=== PATIENT | female | born 1990 | race Caucasian/White ===

== ENCOUNTER 2023-11-26 22:29 | Emergency (ER) | payer OTHER, SELFPAY ==
[2023-11-26 22:33] VITALS: BP 128/89; PULSE 84; TEMP 36.8; O2SAT 91; BMI 38.7
--- NOTE | 2023-11-26 23:41 | ED.MEDCLEAR1 ---
HPI - Medical Clearance General Chief complaint: Medical Clearance Stated complaint: Medical Clearance Time Seen by Provider: 11/26/23 22:43 Source: patient Mode of arrival: Wheelchair History of Present Illness HPI Narrative: This 33-year-old female was referred to the emergency department by [facility] after she presented for intake after drinking a large amount of ROM and her breath alcohol was greater than 0.2. According to them she has to be referred to the emergency department at that time. The patient states she drank less today than she typically does. She states that she has been in rehab before and was clean 124 days. She started drinking again last Friday after losing her job. She denies any chest pain or shortness of breath. She is not having any nausea or vomiting. She denies the possibility of . She is tearful but otherwise awake alert and oriented. She was seen recently for anxiety at another hospital. She denies any suicidal or homicidal ideation at this time and states she went to the detox facility to get help and is aggravated that they referred her to this emergency department. The patient does admit to heavy tobacco use and states that her lungs are F-d up Related Information Allergies Allergy/AdvReac Type Severity Reaction Status Date / Time doxepin AdvReac Intermediate Rash Verified 11/26/23 22:48 lavender (Lavandula AdvReac Intermediate Rash Verified 11/26/23 22:48 angustifolia) tramadol AdvReac Intermediate Rash Verified 11/26/23 22:48 Review of Systems ROS Status of ROS 10 or more systems reviewed and unremarkable except as noted in history and below Exam Narrative Exam Narrative: Vital signs and Nursing Notes reviewed: Patient is afebrile with a normal pulse, normal respiratory rate, she is mildly hypoxic with pulse ox of 91% on room air General: Intoxicated but cooperative overweight female, no respiratory distress HEENT: Normocephalic atraumatic, mucous membranes are moist and pink, eyes are clear, normal conjunctiva, vision is grossly intact Chest: Coarse breath sounds and expiratory wheezing, no rhonchi or rales appreciated, occasional moist cough noted, pulse ox was low upon arrival at 91% on room air CVS: Regular rate and rhythm S1-S2, no murmurs rubs or gallops, pulses are brisk and equal bilaterally ABD: Soft, nondistended, nontender, no rebound guarding or rigidity, bowel sounds are normal, no pulsatile masses appreciated Extremities: Moving all extremities, no lower extremity tenderness or swelling noted, negative Homans' sign, pulses are brisk and equal bilaterally Skin: Normal in appearance without rash,pallor, petechiae or purpura Neuro: No focal deficits, mildly intoxicated, ambulatory with a steady gait Constitutional Vital Signs, click to edit/add: Last Vital Signs Temp 98.2 F 11/26/23 22:33 Pulse 84 11/26/23 22:33 Resp 16 11/26/23 22:33 BP 128/89 11/26/23 22:33 Pulse Ox 91 L 11/26/23 22:33 O2 Del Method Room Air 11/26/23 22:33 Course Vital Signs Vital signs: Vital Signs Temperature 98.2 F 11/26/23 22:33 Pulse Rate 84 11/26/23 22:33 Respiratory Rate 16 11/26/23 22:33 Blood Pressure 128/89 11/26/23 22:33 Pulse Oximetry 91 L 11/26/23 22:33 Oxygen Delivery Method Room Air 11/26/23 22:33 Temperature 98.2 F 11/26/23 22:33 Pulse Rate 84 11/26/23 22:33 Respiratory Rate 16 11/26/23 22:33 Blood Pressure 128/89 11/26/23 22:33 Pulse Oximetry 91 L 11/26/23 22:33 Oxygen Delivery Method Room Air 11/26/23 22:33 MDM - Medical Clearance MDM Narrative Medical decision making narrative: This 33-year-old female was referred to the emergency department from [facility] for medical clearance after she presented for intake with an elevated alcohol level. She admits that she drank 1/5 of rum earlier in the day which was not as much room as she typically drinks. She states she had been clean from alcohol 424 days before recently losing her job and going back to alcohol use. In the emergency department she was mildly intoxicated but appropriate. She was hungry and had several small meals and was drinking oral fluids. IV fluids were withheld due to a national shortage as well as the fact that she was not having any nausea or vomiting. Routine labs are reviewed. Her test was negative. She had a normal white count and hemoglobin. Electrolytes were normal. She did have an elevated alcohol at 370. She spent several hours in the emergency department resting and did not have any issues requiring admission or transfer and was medically cleared for return to the recovery center. Lab Data Attestation: I reviewed the patient's lab results. Labs: Lab Results 11/26/23 11/26/23 Range/Units 22:45 23:25 WBC 8.0 (4.0-11.0) 10^3/uL RBC 4.52 (4.20-5.40) 10^6/uL Hgb 14.3 (12.0-16.0) g/dL Hct 41.7 (36.0-48.0) % MCV 92.3 (81.0-99.0) fL MCH 31.6 (26.7-34.0) pg MCHC 34.3 (29.9-35.2) g/dL RDW 13.6 (11.0-15.0) % Plt Count 127 L (150-450) 10^3/uL MPV 9.8 (9.5-13.5) fL Neut % (Auto) 45.2 (43.0-75.0) % Lymph % (Auto) 47.1 (20.5-60.0) % [place] % (Auto) 3.9 (1.7-12.0) % Eos % (Auto) 2.4 (0.9-7.0) % Baso % (Auto) 1.1 (0.2-2.0) % Neut # (Auto) 3.6 (1.4-6.5) 10^3/uL Lymph # (Auto) 3.8 (1.2-3.8) 10^3/uL [place] # (Auto) 0.3 (0.3-0.8) 10^3/uL Eos # (Auto) 0.2 (0.0-0.7) 10^3/uL Baso # (Auto) 0.1 (0.0-0.1) 10^3/uL Abs Immat Gran (auto) 0.02 (0.00-0.03) 10^3/uL Imm/Tot Granulo (auto) 0.3 (0.0-0.5) % Sodium 143 (136-145) mmol/L Potassium 3.7 (3.5-5.1) mmol/L Chloride 103 (98-107) mmol/L Carbon Dioxide 28.1 (21.0-32.0) mmol/L Anion Gap 15.6 BUN 10.0 (7.0-18.0) mg/dL Creatinine 0.74 (0.55-1.02) mg/dL Est GFR ( Amer) >60 (>=60 mL/min/1.73m^2) Est GFR (Non-Af Amer) >60 (>=60 mL/min/1.73m^2) BUN/Creatinine Ratio 13.5 Glucose 95 (74-106) mg/dL Calcium 9.1 (8.5-10.1) mg/dL Total Bilirubin 0.9 (0.2-1.0) mg/dL AST 51 H (15-37) U/L ALT 31 (14-59) U/L Alkaline Phosphatase 154 H (46-116) U/L Total Protein 8.2 (6.4-8.2) g/dL Albumin 3.7 (3.4-5.0) g/dL Globulin 4.5 g/dL Albumin/Globulin Ratio 0.8 Urine Color Lt. yellow (YELLOW) Urine Clarity Clear (CLEAR) Urine pH 6.0 (5.0-9.0) Ur Specific [place] <=1.005 A (1.005-1.025) Urine Protein Negative (NEG/TRACE) mg/dL Urine Glucose (UA) Negative (NEGATIVE) mg/dL Urine Ketones Negative (NEGATIVE) mg/dL Urine Occult Blood Negative (NEGATIVE) Urine Nitrite Negative (NEGATIVE) Urine Bilirubin Negative (NEGATIVE) Urine Urobilinogen 0.2 (0.2-1.0) EU/dL Ur Leukocyte Esterase Negative (NEGATIVE) Urine RBC 0-2 (0-2) #/HPF Urine WBC 0-2 A (NONE SEEN) #/HPF Ur Squamous Epith Cells Rare (NONE/RARE) #/LPF Urine Crystals None seen (None Seen) #/HPF Urine Bacteria None seen (NONE SEEN) #/HPF Urine Casts None seen (NONE SEEN) #/LPF Urine Mucus None seen (NONE SEEN) Ur Culture Indicated? No Ethanol Quant 370 mg/dL Discharge Plan Discharge Chief Complaint: Medical Clearance Clinical Impression: Alcohol intoxication in active alcoholic Patient Disposition: Home, Self-Care Time of Disposition Decision: 06:45 Condition: Good Print Language: Bhutanese Instructions: Alcohol Use Disorder (ED) Referrals: Physician,Non-Staff, [Primary Care Provider] - 1 week Discharge Date/Time: 11/27/23 04:30
[2023-11-26 23:50] LABS: Bilirubin Urine NEGATIVE (NEGATIVE); Blood Urine NEGATIVE (NEGATIVE); Clarity Urine CLEAR (CLEAR); Color Urine LT. YELLOW (YELLOW); Glucose Urine UA NEGATIVE (NEGATIVE); Ketones Urine NEGATIVE (NEGATIVE); Leukocyte Esterase Urine NEGATIVE (NEGATIVE); Nitrite Urine NEGATIVE (NEGATIVE); Protein Urine NEGATIVE (NEG/TRACE); Specific Gravity Urine <=1.005 (1.005-1.025); Urobilinogen Urine 0.2 EU/dL (0.2-1.0)
[2023-11-26 23:51] LABS: Basophils Absolute Auto 0.1 10^3/uL (0.0-0.1); Basophils Percent Auto 1.1 % (0.2-2.0); Eosinophils Absolute Auto 0.2 10^3/uL (0.0-0.7); Eosinophils Percent Auto 2.4 % (0.9-7.0); Hematocrit 41.7 % (36.0-48.0); Hemoglobin 14.3 g/dL (12.0-16.0); Immature Granulocytes Abs Auto 0.02 10^3/uL (0.00-0.03); Immature Granulocytes Pct Auto 0.3 % (0.0-0.5); Lymphocytes Absolute Auto 3.8 10^3/uL (1.2-3.8); Lymphocytes Percent Auto 47.1 % (20.5-60.0); Mean Corpuscular HGB Conc 34.3 g/dL (29.9-35.2); Mean Corpuscular Hemoglobin 31.6 pg (26.7-34.0); Mean Corpuscular Volume 92.3 fL (81.0-99.0); Mean Platelet Volume 9.8 fL (9.5-13.5); Monocytes Absolute Auto 0.3 10^3/uL (0.3-0.8); Monocytes Percent Auto 3.9 % (1.7-12.0); Neutrophils Absolute Auto 3.6 10^3/uL (1.4-6.5); Neutrophils Percent Auto 45.2 % (43.0-75.0); Platelet Count 127 10^3/uL (150-450); Red Blood Count 4.52 10^6/uL (4.20-5.40); Red Cell Distribution Width 13.6 % (11.0-15.0)
[2023-11-27 00:01] LABS: Alanine Aminotransferase 31 U/L (14-59); Albumin Globulin Ratio 0.8; Albumin Level 3.7 g/dL (3.4-5.0); Alkaline Phosphatase 154 U/L (46-116); Anion Gap 15.6; Aspartate Amino Transferase 51 U/L (15-37); BUN Creatinine Ratio 13.5; Bilirubin Total 0.9 mg/dL (0.2-1.0); Calcium 9.1 mg/dL (8.5-10.1); Carbon Dioxide 28.1 mmol/L (21.0-32.0); Chloride 103 mmol/L (98-107); Estimated GFR (African America >60 (>=60 mL/min/1.73m^2); Estimated GFR (Non-African Ame >60 (>=60 mL/min/1.73m^2); Ethanol 370 mg/dL; Globulin 4.5 g/dL; Glucose 95 mg/dL (74-106); Potassium 3.7 mmol/L (3.5-5.1); Sodium 143 mmol/L (136-145); Total Protein 8.2 g/dL (6.4-8.2)
[2023-11-27 00:01] LABS: Bacteria Urine NONE SEEN #/HPF (NONE SEEN); Cast Seen? NONE SEEN #/LPF (NONE SEEN); Crystals Seen? None Seen #/HPF (None Seen); Mucus Urine NONE SEEN (NONE SEEN); RBC Urine 0-2 #/HPF (0-2); Squamous Epithelial Cell Urine RARE #/LPF (NONE/RARE); Urine Culture Indicated NO; WBC Urine 0-2 #/HPF (NONE SEEN)
--- NOTE | 2023-11-27 00:01 | PC.NURSE ---
Patient eating and drinking at this time. Pt has no complaints of any pain or SOB. Denies any further needs at this time.
[2023-11-27] MEDS: IBUPROFEN 600 MG TABLET PO (00:30)
== END 2023-11-27 04:30 | disposition home or self-care (01) ==
PROVIDERS: Emergency Provider Emergency Medicine
DX: F10.229 Alcohol dependence with intoxication, unspecified (principal); Y90.8 Blood alcohol level of 240 mg/100 ml or more
CPT/HCPCS: 36415; 80053; 80320; 81001; 85025; 99283